=== PATIENT | female | born 1950 | race Caucasian/White ===

== ENCOUNTER → 2017-08-19 | Outpatient (REF) | payer MEDICARE, MEDICAID | LOC: M SFHCWAGY 14:43 | DX: Z12.4 Encounter for screening for malignant neoplasm of cervix (principal); Z12.12 Encounter for screening for malignant neoplasm of rectum | CPT/HCPCS: G0123 ==

== ENCOUNTER → 2017-08-21 | Outpatient (CLI) | payer MEDICARE, MEDICAID | LOC: M WHC 14:05 | DX: Z12.31 Encounter for screening mammogram for malignant neoplasm of breast (principal); Z78.0 Asymptomatic menopausal state | CPT/HCPCS: 77067 ==

== ENCOUNTER 2019-03-19 06:44 | Day surgery (SDC) | payer MEDICARE, MEDICAID ==
[~2019-03-19] VITALS: Ht 154.9 cm; Wt 89.8 kg
[~2019-03-19 06:44] MED LIST: ACET500C OR; ADVA230A INH; ATEN100T OR; ATEN25TA PO; EZET10TA21 PO; FOLI1TAB11 PO; FURO40TA2 OR; FURO40TA2 PO; HYDR-3911 PO; HYDR12.55 PO; HYDR25TAB PO; INCR1INH INH; JANU100T PO; LISI20TA5 OR; MAPA500C PO; METF500T13 PO; METF500T4 OR; NEXI1CAP3 OR; NIAS500T2 OR; NS 1,000 ML IV ONE; OMEP40CA97 PO; PENN1.5S2 TOP; PRED5EL OR; PRESCAP PO; PROS2TAB2 PO; SIMV40TA2 OR; SING10TA31 OR; SPIR1CAP INH; SYMB80AE IN; TOPR25TA PO; TRAD5TAB PO; ULTR50TA PO; ULTRTA OR; VENTAER IN; VENTAER INH; VIT D 2000 PO; VITA1CAP25 PO; VOLT1GEL TOP; XARE20TA PO; [UNRECOGNIZED DRUG - OTHER] INH; januvia PO; ocuvite PO; proair INH; tramadol PO
[2019-03-19] MEDS ORDERED: propofoL 500 MG/50 ML VIAL As Ordered ONE (07:14)
[2019-03-19] MEDS ORDERED: LIDOCAINE 2% INJ 100 MG/5 ML SDV (FOR ANES.) As Ordered ONE (07:14)
--- NOTE | 2019-03-19 08:51 | ROOR ---
Patient Name: Violeta Darden Procedure Date: 03/19/2019 8:32 AM Date of : 1950 Age: 68 Room: [facility] Gender: Female Note Status: Finalized Procedure: Upper Endoscopy + Biopsies Indications: Epigastric abdominal pain, Heartburn, Abdominal bloating, Nausea Providers: Kenneth Perea MD Referring MD: AKANKSHA CLARK NP Requesting Provider: Medicines: Monitored Anesthesia Care Complications: No immediate complications. Procedure: Pre-Anesthesia Assessment: - The heart rate, respiratory rate, oxygen saturations, blood pressure, adequacy of pulmonary ventilation, and response to care were monitored throughout the procedure. The Endoscope was introduced through the mouth, and advanced to the second part of duodenum. The upper GI endoscopy was accomplished without difficulty. The patient tolerated the procedure well. Findings: The Z-line was regular and was found 40 cm from the incisors. Multiple biopsies were obtained with cold forceps for evaluation to rule out Jenkins's Esophagus randomly at the gastroesophageal junction. A small hiatal hernia was present. No other significant abnormalities were identified in a careful examination of the stomach. Biopsies were taken with a cold forceps in the gastric antrum for Helicobacter pylori testing. The exam of the duodenum was otherwise normal. Impression: - Z-line regular, 40 cm from the incisors. - Small hiatal hernia. - Multiple biopsies were obtained at the gastroesophageal junction. - Biopsies were taken with a cold forceps for Helicobacter pylori testing. - The examination was otherwise normal. Recommendation: - Patient has a contact number available for emergencies. The signs and symptoms of potential delayed complications were discussed with the patient. Return to normal activities tomorrow. Written discharge instructions were provided to the patient. - High fiber diet. - Discharge patient to home. - Continue present medications. - Follow an antireflux regimen. - Await pathology results. - Telephone GI clinic for pathology results in 1 week. - Return to referring physician. - The findings and recommendations were discussed with the patient's family. Kenneth Perea MD Kenneth Perea MD 03/19/2019 8:50:42 AM Electronically signed by Kenneth Perea MD Number of Addenda: 0 Note Initiated On: 03/19/2019 8:32 AM Estimated Blood Loss: Estimated blood loss: none.
[2019-03-19] MEDS ORDERED: propofoL 200 MG/20 ML VIAL As Ordered ONE (09:12)
--- NOTE | 2019-03-19 09:27 | ROOR ---
Patient Name: Violeta Darden Procedure Date: 03/19/2019 8:32 AM Date of : 1950 Age: 68 Room: [facility] Gender: Female Note Status: Finalized Procedure: Total Colonoscopy to Cecum + Cold Snare Polypectomy + Hemoclips + Biopsies Indications: Change in bowel habits Providers: Kenneth Perea MD Referring MD: AKANKSHA CLARK NP Requesting Provider: Medicines: Monitored Anesthesia Care Complications: No immediate complications. Procedure: Pre-Anesthesia Assessment: - The heart rate, respiratory rate, oxygen saturations, blood pressure, adequacy of pulmonary ventilation, and response to care were monitored throughout the procedure. The Colonoscope was introduced through the anus and advanced to the cecum, identified by appendiceal orifice and ileocecal valve. The colonoscopy was performed without difficulty. The patient tolerated the procedure well. The quality of the bowel preparation was excellent. Findings: The perianal and digital rectal examinations were normal. Non-bleeding internal hemorrhoids were found during retroflexion. The hemorrhoids were small and Grade I (internal hemorrhoids that do not prolapse). Multiple small and large-mouthed diverticula were found in the recto-sigmoid colon, sigmoid colon and descending colon. Multiple sessile polyps were found in the proximal ascending colon and distal ascending colon. The polyps were medium in size. These polyps were removed with a cold snare. Resection and retrieval were complete. To prevent bleeding after the polypectomy, two hemostatic clips were successfully placed (MR conditional). There was no bleeding at the end of the procedure. A small polyp was found at 60 cm proximal to the anus. The polyp was sessile. The polyp was removed with a cold snare. Resection and retrieval were complete. A small polyp was found at 40 cm proximal to the anus. The polyp was sessile. The polyp was removed with a cold snare. Resection and retrieval were complete. Biopsies for histology were taken with a cold forceps from the ascending colon, transverse colon, descending colon and rectosigmoid colon for evaluation of microscopic colitis. The exam was otherwise without abnormality on direct and retroflexion views. Impression: - Non-bleeding internal hemorrhoids. - Diverticulosis in the recto-sigmoid colon, in the sigmoid colon and in the descending colon. - Multiple medium polyps in the proximal ascending colon and in the distal ascending colon, removed with a cold snare. Resected and retrieved. Clips (MR conditional) were placed. - One small polyp at 60 cm proximal to the anus, removed with a cold snare. Resected and retrieved. - One small polyp at 40 cm proximal to the anus, removed with a cold snare. Resected and retrieved. - The examination was otherwise normal on direct and retroflexion views. - Biopsies were taken with a cold forceps from the ascending colon, transverse colon, descending colon and rectosigmoid colon for evaluation of microscopic colitis. - The exam was otherwise normal to the cecum. Recommendation: - Patient has a contact number available for emergencies. The signs and symptoms of potential delayed complications were discussed with the patient. Return to normal activities tomorrow. Written discharge instructions were provided to the patient. - High fiber diet. - Discharge patient to home. - Continue present medications. - Await pathology results. - Repeat colonoscopy for surveillance based on pathology results. - Return to referring physician. - The findings and recommendations were discussed with the patient's family. Kenneth Perea MD Kenneth Perea MD 03/19/2019 9:26:40 AM Electronically signed by Kenneth Perea MD Number of Addenda: 0 Note Initiated On: 03/19/2019 8:32 AM Estimated Blood Loss: Estimated blood loss: none.
[2019-03-19 09:45] VITALS: BP 135/92
== END 2019-03-19 09:50 | disposition home or self-care (01) ==
LOC: M OPP 06:44
PROVIDERS: ATTEND Internal Medicine Gastroenterology
DX: K64.0 First degree hemorrhoids (principal); D12.6 Benign neoplasm of colon, unspecified; K57.30 Diverticulosis of large intestine without perforation or abscess without bleeding; R19.4 Change in bowel habit; K44.9 Diaphragmatic hernia without obstruction or gangrene; R10.13 Epigastric pain; R14.0 Abdominal distension (gaseous); R11.0 Nausea; E11.9 Type 2 diabetes mellitus without complications; Z79.84 Long term (current) use of oral hypoglycemic drugs; Z79.899 Other long term (current) drug therapy; Z88.8 Allergy status to other drugs, medicaments and biological substances; Z87.891 Personal history of nicotine dependence

== ENCOUNTER → 2020-06-14 | Outpatient (CLI) | payer MEDICARE, MEDICAID ==
[~2020-06-14] MED LIST changes: +HYDR-3490 PO; -HYDR25TAB PO; -NS 1,000 ML IV ONE
--- NOTE | 2020-06-15 13:49 | ECHO ---
DATE OF PROCEDURE: 06/14/2020 Age: 69 Gender: Female Height: 62 inches Weight: 205 pounds Body Surface Area: 1.93 m2 PATIENT LOCATION: Outpatient. REFERRING PHYSICIAN: Dr. Glenroy Kapoor. INDICATION: COPD. MEASUREMENTS: 2D Measurements: RV 3.5 cm LV 4.3 cm Septum 1.2 cm Posterior wall 1.2 cm Aortic Root 3.3 cm LA 4.3 cm LVEF 75% Doppler Measurements: AV 1.6 m/s LVOT 1.0 m/s LVOT diameter 1.8 cm MV-E 60, A 75, EA ratio 0.8 Early mitral deceleration time 158 msec E prime medial 6.8, A prime medial 8.7, E prime lateral 8.2 Average E/E prime ratio 8/PCWP 11.8 mmHg PV - 0.75 m/s Pulmonary artery acceleration time 110 msec PASP 32 mmHg IVC - 1.5 cm COMMENTS: Normal sinus rhythm without intraventricular conduction disturbance. A technically challenging study in light of the patient's body habitus, but diagnostically useful information was still obtained. M-mode and 2-dimensional echocardiography was performed with pulse, continuous wave, color flow, and tissue Doppler studies. Borderline symmetrical left ventricular hypertrophy with hyperkinetic wall motion. Mildly dilated left atrium with grade 1 LV diastolic dysfunction but currently normal estimated mean left atrial pressure. Normal right heart chamber sizes and motion with Doppler evidence of pulmonary arterial pressure upper limits of normal to slightly increased. Normal IVC size and collapse against an elevated central venous pressure. Normal aortic dimensions. Three equal size aortic cusps. Normal thickness and cusp separation with no insufficiency. Normal appearing mitral valvular apparatus and leaflet excursion with no posterior systolic buckling. Very mild mitral insufficiency (physiologic). Normal appearing tricuspid valve with very mild insufficiency (physiologic). No apparent intracardiac mass and only physiologic amount of pericardial fluid. MTDD
== END ==
LOC: M CARPUL 09:39
PROVIDERS: ATTEND Internal Medicine Pulmonary Disease
DX: J44.9 Chronic obstructive pulmonary disease, unspecified (principal); I10 Essential (primary) hypertension

== ENCOUNTER → 2020-07-29 | Outpatient (CLI) | payer MEDICARE, MEDICAID ==
[~2020-07-29] MED LIST changes: +OMEP40CA4 PO; -OMEP40CA97 PO
--- NOTE | 2020-07-31 14:00 | SLEEPCENT ---
DATE: 07/29/2020 ORDERED BY: Dr. Kapoor. Nocturnal polysomnography was performed for evaluation of sleep physiology. 8 hours and 19 minutes of data were reviewed. There were 351.5 minutes of sleep identified. Sleep latency was mildly prolonged at 22 minutes. REM latency was prolonged at 191 minutes. Sleep architecture showed fragmentation. There were three REM cycles appreciated. Overall sleep efficiency 71.1%. The electrocardiogram showed a sinus rhythm with occasional unifocal ventricular ectopic beats. Average heart rate was 75 beats per minute. Rate ranged 65 to 95. EEG showed normal waveforms for wake and sleep. There were 423 respiratory events identified of 10 seconds in duration or greater for an apnea-hypopnea index of 72.2. The events were primarily obstructive, 23 mixed and central apneas were seen. Respiratory events were not exclusive to sleep stage nor body posture. Arousals from respiratory events occurred 12.6 times per hour, and oxygen desaturations were seen into the low 80s. With some minor limb activity, limb movement arousal index was 1.5. IMPRESSION: Obstructive sleep apnea syndrome (G47.33), apnea-hypopnea index 72.2. RECOMMENDATION: The patient should be encouraged to return to [facility]. In the interim, alcohol and sedative avoidance should be practiced and caution exercised during the operation of motor vehicles.
== END ==
LOC: M SLEEP 20:00
PROVIDERS: ATTEND Internal Medicine Pulmonary Disease
DX: G47.30 Sleep apnea, unspecified (principal)

== ENCOUNTER → 2020-08-15 | Outpatient (CLI) | payer MEDICARE, MEDICAID ==
--- NOTE | 2020-08-16 13:48 | SLEEPCENT ---
NOCTURNAL POLYSOMNOGRAPHY DATE: 08/15/2020 ORDERED BY: Glenroy Kapoor M.D. Nocturnal polysomnography was performed for the titration of pressure therapy in this patient with obstructive sleep apnea syndrome with apnea-hypopnea index of 72.2. For testing a [employer] Vitera full face mask of medium size was used, 4 cm of water pressure were applied to the circuit, and the lights were extinguished. 7 hours and 46 minutes of data were reviewed. There were 289 minutes of sleep identified. Sleep latency was prolonged at 33 minutes. REM latency was prolonged at 249 minutes. Sleep architecture showed initial regression. There were three REM cycles noted later in the study. Overall sleep efficiency was 62.8%. The electrocardiogram showed a baseline sinus rhythm with PVCs. Average heart rate was 85 beats per minute. EEG showed normal waveforms for wake and sleep. Persistent of respiratory events prompted an increase in CPAP pressure. Obstructive events were fully addressed at a CPAP pressure of +13. Despite optimal pressure therapy, oxygen desaturations occurred prompting the addition of supplemental oxygen. Best sleep was seen on a CPAP pressure of +13 with 2 liters of oxygen bled through the system. Persistent limb events were appreciated. Limb movement arousal index on this occasion was 2.7. IMPRESSION: Obstructive sleep apnea syndrome (G47.33). RECOMMENDATION: Nightly use of pressure therapy 13 cm of water with 2 liters of oxygen bled through the system to address oxygen desaturations.
== END ==
LOC: M SLEEP 20:00
PROVIDERS: ATTEND Nurse Practitioner Family
DX: G47.33 Obstructive sleep apnea (adult) (pediatric) (principal)

== ENCOUNTER → 2021-04-17 | Outpatient (CLI) | payer MEDICARE, MEDICAID | LOC: M WHC 12:31 | PROVIDERS: ATTEND Nurse Practitioner Family | DX: M81.0 Age-related osteoporosis without current pathological fracture (principal) ==

== ENCOUNTER → 2023-04-25 | Outpatient (CLI) | payer MEDICARE, MEDICAID ==
[~2023-04-25] MED LIST changes: -HYDR-3911 PO; +HYDR50TA46 PO
== END ==
LOC: M PLAIMG 13:34
PROVIDERS: ATTEND Pain Medicine Interventional Pain Medicine
DX: M54.16 Radiculopathy, lumbar region (principal); M48.061 Spinal stenosis, lumbar region without neurogenic claudication; G83.4 Cauda equina syndrome; M99.63 Osseous and subluxation stenosis of intervertebral foramina of lumbar region

== ENCOUNTER → 2024-04-30 | Outpatient (REF) | payer MEDICARE, MEDICAID ==
[~2024-04-30] MED LIST changes: +APAP500T10 PO; +EZET1TAB PO; +FAMO1TAB11 PO; +MAGN200T PO; +ONDA-282 PO; +POTA-149 PO; +PRES10CA2 PO
[2024-05-06 03:22] LABS: PANCREATIC ELASTASE STOOL 133 mcg/g (>200)
[2024-05-08 04:53] LABS: CALPROTECTIN STOOL < 5 mcg/g (<50)
== END ==
LOC: M LAB REF 12:53
PROVIDERS: ATTEND Internal Medicine Gastroenterology
DX: R19.7 Diarrhea, unspecified (principal)

== ENCOUNTER 2024-05-03 10:57 | Day surgery (SDC) | payer MEDICARE, MEDICAID ==
[~2024-05-03] VITALS: Ht 156.2 cm; Wt 62.1 kg
[2024-05-03] MEDS ORDERED: LIDOCAINE 2% 100MG/5ML SDV (FOR ANES.) As Ordered ONE (12:10)
[2024-05-03] MEDS ORDERED: propofoL 200 MG/20 ML VIAL As Ordered ONE (12:32)
[2024-05-03] MEDS ORDERED: ePHEDrine SULFATE 25 MG/5 ML(5MG/ML) SYRINGE As Ordered ONE (12:47)
[2024-05-03 13:25] VITALS: BP 131/61; TEMP 97.1; O2SAT 97
== END 2024-05-03 13:34 | disposition home or self-care (01) ==
LOC: M OPP 10:57
PROVIDERS: ATTEND Internal Medicine Gastroenterology
DX: D12.2 Benign neoplasm of ascending colon (principal); K64.0 First degree hemorrhoids; K57.30 Diverticulosis of large intestine without perforation or abscess without bleeding; R19.7 Diarrhea, unspecified; R63.4 Abnormal weight loss; K44.9 Diaphragmatic hernia without obstruction or gangrene; R13.10 Dysphagia, unspecified; G47.30 Sleep apnea, unspecified; I48.91 Unspecified atrial fibrillation; Z88.8 Allergy status to other drugs, medicaments and biological substances; Z79.84 Long term (current) use of oral hypoglycemic drugs; Z79.899 Other long term (current) drug therapy; J44.9 Chronic obstructive pulmonary disease, unspecified